=== PATIENT | female | born 1995 | race Caucasian/White ===

== ENCOUNTER → 2017-10-27 | Outpatient (CLI) | payer OTHER, MEDICAID | END | disposition home or self-care (01) | LOC: CFH 15:44 | PROVIDERS: ATTEND Internal Medicine Critical Care Medicine | DX: R59.0 Localized enlarged lymph nodes (principal); J45.909 Unspecified asthma, uncomplicated | CPT/HCPCS: 71250 ==

== ENCOUNTER 2017-12-16 08:46 | Day surgery (SDC) | payer OTHER, MEDICAID ==
[2017-12-13 15:56] LABS: BASOPHILS # (AUTO) 0.04 x10^3/uL (0-0.1); BASOPHILS % (AUTO) 1 % (0-1); EOSINOPHILS # (AUTO) 0.29 x10^3/uL (0-0.4); EOSINOPHILS % (AUTO) 5 % (1-7); LYMPHOCYTES # (AUTO) 2.11 x10^3/uL (1-3.4); LYMPHOCYTES % (AUTO) 34 % (22-44); MD NO; MEAN CORPUSCULAR HGB CONC 33.5 g/dL (32.4-35.8); MEAN CORPUSCULAR VOLUME 86.6 fL (80-100); MEAN PLATELET VOLUME 9.3 fL (7.4-10.4); MONOCYTES # (AUTO) 0.68 x10^3/uL (0.2-0.8); MONOCYTES % (AUTO) 11 % (2-9); NEUTROPHILS # (AUTO) 3.13 x10^3/uL (1.8-6.8); NEUTROPHILS % (AUTO) 50 % (42-75); PLATELET COUNT 405 x10^3/uL (130-400); RED BLOOD COUNT 5.02 x10^6/uL (3.82-5.3); RED CELL DISTRIBUTION WIDTH 14.4 % (9.6-15.2)
[2017-12-13 16:23] LABS: INTERNATIONAL NORMALIZED RATIO 0.91 (0.93-1.1); PROTHROMBIN TIME 9.5 Seconds (9.6-11.5)
[~2017-12-16] VITALS: Ht 160 cm; Wt 68.8 kg
[~2017-12-16 08:46] MED LIST: FLUT1AER INH; IGG IV; MULT-658 PO; NORE1TAB85 PO
[2017-12-16] MEDS ORDERED: LACTATED RINGERS 1,000 ML IV SCH (10:00)
[2017-12-16 10:01] VITALS: BP 111/77
[2017-12-16] MEDS ORDERED: CEFAZOLIN 1,000 MG ONE ×2 (10:27)
[2017-12-16] MEDS ORDERED: FENTANYL PF 250 MCG/5ML ONE (10:27)
[2017-12-16] MEDS ORDERED: MIDAZOLAM 1 MG/ML, 2ML ONE (10:27)
[2017-12-16] MEDS ORDERED: ONDANSETRON 2MG/ML, 2ML ONE (10:45)
[2017-12-16] MEDS ORDERED: PROPOFOL 10 MG/ML, 20ML ONE (10:45)
[2017-12-16] MEDS ORDERED: DEXAMETHASONE 4 MG/ML, 5ML ONE (10:45)
[2017-12-16] MEDS ORDERED: PROPOFOL 10 MG/ML, 50ML ONE (10:45)
[2017-12-16] MEDS ORDERED: FENTANYL PF 100 MCG/2ML IV PRN (11:00)
[2017-12-16] MEDS ORDERED: ACETAMINOPHEN 325 MG TABLET PO PRN (11:00)
[2017-12-16] MEDS ORDERED: OXYcodone 5 MG/5 ML ORAL.SOL UDC PO PRN (11:00)
[2017-12-16] MEDS ORDERED: ONDANSETRON 2MG/ML, 2ML IVPush PRN (11:00)
[2017-12-16] MEDS ORDERED: LABETALOL 5MG/ML, 20ML IV PRN (11:00)
[2017-12-16] MEDS ORDERED: MEPERIDINE/PF 25MG/0.5ML IVPush PRN (11:00)
[2017-12-16] MEDS ORDERED: morphine SULFATE 10 MG/ML, 1ML IV PRN (11:00)
[2017-12-16] MEDS ORDERED: ALBUTEROL SULFATE 2.5 MG/3 ML NPPB ONE (12:00)
[2017-12-16] MEDS ORDERED: ALBUTEROL SULFATE 2.5 MG/3 ML ONE (12:14)
[2017-12-16] MEDS ORDERED: FENTANYL PF 100 MCG/2ML ONE (12:24)
== END 2017-12-16 14:25 ==
LOC: OUT 08:46
PROVIDERS: ATTEND Internal Medicine Critical Care Medicine
DX: J40 Bronchitis, not specified as acute or chronic (principal); R59.1 Generalized enlarged lymph nodes; Z88.8 Allergy status to other drugs, medicaments and biological substances; Z79.01 Long term (current) use of anticoagulants
CPT/HCPCS: 31625; 31627; 31652; 36415; 81025; 85025; 85610; 85730; 88173; 88305; 94640; J0690; J1100; J2250; J2405; J2704; J3010; J7120; 88172; 88177

== ENCOUNTER → 2018-06-30 | Outpatient (CLI) | payer OTHER, MEDICAID | END | disposition home or self-care (01) | LOC: CFH 12:14 | PROVIDERS: ATTEND Internal Medicine Critical Care Medicine | DX: J98.11 Atelectasis (principal); R91.8 Other nonspecific abnormal finding of lung field | CPT/HCPCS: 71250 ==

== ENCOUNTER → 2018-11-15 | Outpatient (CLI) | payer OTHER, MEDICAID | END | disposition home or self-care (01) | LOC: RAD 14:29 | PROVIDERS: ATTEND Internal Medicine Critical Care Medicine | DX: J18.9 Pneumonia, unspecified organism (principal); R59.1 Generalized enlarged lymph nodes | CPT/HCPCS: 71250 ==

== ENCOUNTER → 2019-02-16 | Outpatient (CLI) | payer MEDICAID | END | disposition home or self-care (01) | LOC: RAD 15:56 | PROVIDERS: ATTEND Internal Medicine Critical Care Medicine | DX: J18.9 Pneumonia, unspecified organism (principal) | CPT/HCPCS: 71046 ==

== ENCOUNTER → 2019-09-13 | Outpatient (CLI) | payer MEDICAID | END | disposition home or self-care (01) | LOC: RAD 14:27 | PROVIDERS: ATTEND Allergy & Immunology | DX: J32.9 Chronic sinusitis, unspecified (principal) | CPT/HCPCS: 70486 ==

== ENCOUNTER → 2019-12-07 | Outpatient (CLI) | payer MEDICAID | END | disposition home or self-care (01) | LOC: CFH 14:47 | PROVIDERS: ATTEND Internal Medicine | DX: J18.9 Pneumonia, unspecified organism (principal); J47.9 Bronchiectasis, uncomplicated; R59.0 Localized enlarged lymph nodes | CPT/HCPCS: 71046; 71250 ==

== ENCOUNTER → 2021-03-12 | Outpatient (CLI) | payer MEDICAID ==
[~2021-03-12] MED LIST changes: +OMNIPAQUE 350 MG/ML, 100ML BOTTLE ONE
== END | disposition home or self-care (01) ==
LOC: CFH 14:06
PROVIDERS: ATTEND Internal Medicine Hematology & Oncology
DX: K76.0 Fatty (change of) liver, not elsewhere classified (principal); R59.0 Localized enlarged lymph nodes; D81.89 Other combined immunodeficiencies; Z90.81 Acquired absence of spleen
CPT/HCPCS: 71260; 74160; Q9967